=== PATIENT | male | born 2000 | race Caucasian/White ===

== ENCOUNTER 2018-04-29 02:05 | Emergency (ER) | payer BC ==
[2018-04-29] MEDS ORDERED: NS 2,000 ML IV ONE (02:10)
--- NOTE | 2018-04-29 02:13 | EDPHY ---
H & P Stated Complaint: MJ, dizzy, lightheaded, nausea, CP since 0115 Time Seen by Provider: 04/29/18 02:11 HPI/ROS: HPI CHIEF COMPLAINT: Lightheadedness, marijuana ingestion, nausea, anxious, shaky, chest pain HISTORY OF PRESENT ILLNESS: 18-year-old male, presents emergency room by EMS after he ingested 60 mg a THC and 60 mg of CBD will. He typically only takes 20 mg. He states that he accidentally took too much this evening. He states he took this around 10:00 p.m.. Around 1:00 a.m. He became very lightheaded, nauseous, anxious, shaky, and developed some chest discomfort. Presents emergency room by EMS. States he is feeling slightly better. However does feel anxious. And lightheaded. Past Medical History: Denies significant medical history except for celiac disease Past Surgical History: Denies significant surgical history Social History: Marijuana use this evening. Denies other illicit drugs or alcohol. Family History: Noncontributory ROS REVIEW OF SYSTEMS: 10 Systems were reviewed and negative with the exception of the elements mentioned in the history of present illness. Exam Constitutional nontoxic appearing in no acute distress,, anxious triage nursing summary reviewed, vital signs reviewed, awake/alert. Eyes normal conjunctivae and sclera, EOMI, PERRLA. HENT normal inspection, atraumatic, moist mucus membranes, no epistaxis, neck supple/ no meningismus, no raccoon eyes. Respiratory clear to auscultation bilaterally, normal breath sounds, no respiratory distress, no wheezing. Cardiovascular rate normal, regular rhythm, no murmur, no edema, distal pulses normal. Gastrointestinal soft, non-tender, no rebound, no guarding, normal bowel sounds, no distension, no pulsatile mass. Genitourinary no CVA tenderness. Musculoskeletal no midline vertebral tenderness, full range of motion, no calf swelling, no tenderness of extremities, no meningismus, good pulses, neurovascularly intact. Skin pink, warm, & dry, no rash, skin atraumatic. Neurologic awake, alert and oriented x 3, AAOx3, moves all 4 extremities equally, motor intact, sensory intact, CN II-XII intact, normal cerebellar, normal vision, normal speech. Psychiatric anxious Heme/Lymph/Immune no lymphadenopathy. Differential Diagnosis: Includes but is not limited to in a particular order dehydration, electrolyte disturbance, acute marijuana intoxication, marijuana overdose, cardiac arrhythmia, pneumothorax Medical Decision Making: Plan for this patient IV establishment with IV fluid bolus, check drug screen, electrolytes, troponin, chest x-ray, EKG. Re-evaluation: EKG interpretation by me on record in [facility] system. Impression time of EKG 2:21 a.m., sinus rhythm rate of 72 no signs of cardiac arrhythmia or signs of acute ischemia. Point of care troponin 0.00. ED x-ray chest one view: Negative for acute cardiopulmonary disease. 0542: Patient re-evaluated this time is resting comfortably. He has been sleeping here in the emergency room. On re-examination at this time he does feel better. He states he does not feel as high or intoxicated with the large amount of edible marijuana he took tonight. He denies any chest pain or shortness of breath. He is clinically sober eager to be discharged from the emergency room. I do recommend he refrain from taking this much edible marijuana as the typical standard dosing is tender 20 mg he took 120 mg. 0700: Patient ambulatory throughout the emergency without difficulty feels comfortable going home. Return precautions discussed. Return if worsening pain, fever, vomiting. Source: Patient, EMS - Personal History Current Tetanus/Diphtheria Vaccine: Yes - Medical/Surgical History Hx Asthma: No Hx Chronic Respiratory Disease: No Hx Diabetes: No Hx Cardiac Disease: No Hx Renal Disease: No Hx Cirrhosis: No Hx Alcoholism: No Hx HIV/AIDS: No Hx Splenectomy or Spleen Trauma: No Other PMH: celiacs disease - Social History Smoking Status: Never smoked Constitutional: Initial Vital Signs Temperature (C) 36.6 C 04/29/18 02:07 Heart Rate 89 04/29/18 02:07 Respiratory Rate 16 04/29/18 02:07 Blood Pressure 127/62 H 04/29/18 02:07 O2 Sat (%) 98 04/29/18 02:07 O2 Delivery Mode Room Air Allergies/Adverse Reactions: gluten Allergy (Verified 04/29/18 02:10) Home Medications: Medication Instructions Recorded NK [No Known Home Meds] 04/29/18 Medical Decision Making - Data Points Laboratory Results: Laboratory Results 04/29/18 02:17 04/29/18 02:17 04/29/18 04/29/18 04/29/18 05:47 02:23 02:17 WBC RBC Hgb Hct MCV MCH MCHC RDW Plt Count MPV Neut % (Auto) Lymph % (Auto) [place] % (Auto) Eos % (Auto) Baso % (Auto) Nucleat RBC Rel Count Absolute Neuts (auto) Absolute Lymphs (auto) Absolute Monos (auto) Absolute Eos (auto) Absolute Basos (auto) Absolute Nucleated RBC Immature Gran % Immature Gran # Sodium 139 mEq/L mEq/L (135-145) Potassium 3.7 mEq/L mEq/L (3.3-5.0) Chloride 105 mEq/L mEq/L (97-110) Carbon Dioxide 24 mEq/l mEq/l (22-31) Anion Gap 10 mEq/L mEq/L (8-16) BUN 13 mg/dL mg/dL (7-23) Creatinine 0.8 mg/dL mg/dL (0.7-1.3) Estimated GFR > 60 Glucose 184 mg/dL H mg/dL (70-100) Calcium 9.5 mg/dL mg/dL (8.5-10.4) Magnesium 2.0 mg/dL mg/dL (1.6-2.3) Total Bilirubin 0.2 mg/dL mg/dL (0.1-1.4) Conjugated Bilirubin 0.1 mg/dL mg/dL (0.0-0.5) Unconjugated Bilirubin 0.1 mg/dL mg/dL (0.0-1.1) AST 29 IU/L IU/L (17-59) ALT 32 IU/L IU/L (21-72) Alkaline Phosphatase 48 IU/L IU/L (38-126) POC Troponin I 0.00 ng/mL ng/mL 0.00 ng/mL ng/mL (0.00-0.08) (0.00-0.08) NT-Pro-B Natriuret Pep 12 pg/mL pg/mL (0-125) Total Protein 6.3 g/dL g/dL (6.3-8.2) Albumin 4.0 g/dL g/dL (3.5-5.0) 04/29/18 02:17 WBC 10.17 10^3/uL H 10^3/uL (3.80-9.50) RBC 4.89 10^6/uL 10^6/uL (4.40-6.38) Hgb 14.4 g/dL g/dL (13.7-17.5) Hct 41.9 % % (40.0-51.0) MCV 85.7 fL fL (81.5-99.8) MCH 29.4 pg pg (27.9-34.1) MCHC 34.4 g/dL g/dL (32.4-36.7) RDW 12.7 % % (11.5-15.2) Plt Count 283 10^3/uL 10^3/uL (150-400) MPV 9.8 fL fL (8.7-11.7) Neut % (Auto) 49.2 % % (39.3-74.2) Lymph % (Auto) 40.6 % % (15.0-45.0) [place] % (Auto) 7.8 % % (4.5-13.0) Eos % (Auto) 1.6 % % (0.6-7.6) Baso % (Auto) 0.6 % % (0.3-1.7) Nucleat RBC Rel Count 0.0 % % (0.0-0.2) Absolute Neuts (auto) 5.01 10^3/uL 10^3/uL (1.70-6.50) Absolute Lymphs (auto) 4.13 10^3/uL H 10^3/uL (1.00-3.00) Absolute Monos (auto) 0.79 10^3/uL 10^3/uL (0.30-0.80) Absolute Eos (auto) 0.16 10^3/uL 10^3/uL (0.03-0.40) Absolute Basos (auto) 0.06 10^3/uL 10^3/uL (0.02-0.10) Absolute Nucleated RBC 0.00 10^3/uL 10^3/uL (0-0.01) Immature Gran % 0.2 % % (0.0-1.1) Immature Gran # 0.02 10^3/uL 10^3/uL (0.00-0.10) Sodium Potassium Chloride Carbon Dioxide Anion Gap BUN Creatinine Estimated GFR Glucose Calcium Magnesium Total Bilirubin Conjugated Bilirubin Unconjugated Bilirubin AST ALT Alkaline Phosphatase POC Troponin I NT-Pro-B Natriuret Pep Total Protein Albumin Medications Given: Discontinued Medications Sodium Chloride (Ns) 2,000 mls @ 0 mls/hr IV EDNOW ONE; Wide Open PRN Reason: Protocol Stop: 04/29/18 02:11 Last Admin: 04/29/18 02:32 Dose: 2,000 mls Point of Care Test Results: Chemistry 04/29/18 04/29/18 05:47 02:23 POC Troponin I 0.00 ng/mL ng/mL 0.00 ng/mL ng/mL (0.00-0.08) (0.00-0.08) Departure - Departure Disposition: Home, Routine, Self-Care Clinical Impression: Marijuana intoxication Qualifiers: Complication of substance-induced condition: uncomplicated Qualified Code(s): F12.920 - Cannabis use, unspecified with intoxication, uncomplicated Condition: Good Instructions: Cannabis Abuse (ED) Referrals: Patient,NotPresent [Unknown] - As per Instructions
[2018-04-29 02:25] LABS: PLATELET COUNT 283 10^3/uL (150-400)
[2018-04-29 07:08] VITALS: BP 107/53
--- NOTE | 2018-05-02 05:47 | CPEKG ---
Test Reason : OPEN Blood Pressure : / mmHG Vent. Rate : 072 BPM Atrial Rate : 074 BPM P-R Int : 183 ms QRS Dur : 104 ms QT Int : 378 ms P-R-T Axes : 080 083 053 degrees QTc Int : 414 ms Sinus rhythm Confirmed by Timbo Soto ([id number]) on 05/02/2018 5:47:01 AM Referred By: Confirmed By:Timbo Soto
== END 2018-04-29 07:07 | disposition home or self-care (01) ==
DX: F12.920 Cannabis use, unspecified with intoxication, uncomplicated (principal)
CPT/HCPCS: 84484-PO